=== PATIENT | female | born 1980 | race Caucasian/White ===

== ENCOUNTER 2016-10-24 11:43 | Emergency (ER) | payer OTHER ==
[~2016-10-24] VITALS: Ht 152.4 cm; Wt 65.0 kg
[2016-10-24 12:06] VITALS: Ht 152.4 cm; Wt 65.0 kg
[2016-10-24] MEDS ORDERED: SOD CHLORIDE 0.9% 1,000 ML IV ONE (13:00)
[2016-10-24] MEDS ORDERED: ACETAMINOPHEN 500 MG TAB PO STA (13:12)
[2016-10-24 13:26] LABS: ABNORMAL IP MESSAGE 1; BASOPHILS % 0.2 % (0.0-2.0); EOSINOPHILS # 0.6 10^3/ul (0.0-0.5); HEMATOCRIT 39.1 % (37.0-47.0); HEMOGLOBIN 13.7 g/dl (12.0-16.0); LYMPHOCYTES # 0.3 10^3/ul (0.8-2.9); LYMPHOCYTES % 2.9 % (15.0-51.0); MEAN CORPUSCULAR HEMOGLOBIN 31.2 pg (29.0-33.0); MEAN CORPUSCULAR VOLUME 89.1 fl (82.0-101.0); MONOCYTE # 0.5 10^3/ul (0.3-0.9); MONOCYTES % 4.1 % (0.0-11.0); NEUTROPHIL # 9.6 10^3/ul (1.6-7.5); NEUTROPHILS % 86.9 % (39.0-77.0); PLATELET COUNT 296 10^3/UL (140-415); RED BLOOD COUNT 4.39 10^6/ul (4.20-5.40); RED CELL DISTRIBUTION WIDTH 12.1 % (11.5-14.5); WHITE BLOOD COUNT 11.1 10^3/ul (4.8-10.8)
--- NOTE | 2016-10-24 13:37 | RADRPT ---
PROCEDURE: CT brain without contrast CLINICAL INDICATION: Headache, migraine 3 days, nausea, vomiting TECHNIQUE: CT of the brain without contrast was performed on a multidetector CT scanner, with multi planar reformats. One or more of the following dose reduction techniques were used: Automated expos ure control, adjustment in mA and / or kV according to patient size, use of iterative reconstructive technique. CTDIvol = 45 mGy; DLP = 630 mGy-cm. COMPARISON: None available FINDINGS: No acute intracranial hemorrhage is identified. No extra-axial fluid collection is seen. There is no mass effect. No midline shift is identified. Ventricles and sulci are within normal limits for size and configuration. The density of the brain is within normal limits. [place]-white differentiation is preserved. Osseous structures are unremarkable. Mastoid air cells and imaged paranasal sinuses grossly clear. IMPRESSION: Unremarkable noncontrast CT of the brain. RPTAT: VV .Sukhdev Bruno MD, MD Date Time Electronically viewed and signed by .Sukhdev Bruno MD, on 10/24/2016 13:36 .O/
[2016-10-24 13:41] LABS: CALCIUM 8.6 mg/dl (8.4-10.2); CREATININE 0.69 mg/dl (0.44-1.00); POTASSIUM 4.2 mmol/L (3.5-5.1)
[2016-10-24] MEDS ORDERED: ONDANSETRON 4 MG INJ IV STA (14:14)
[2016-10-24] MEDS ORDERED: morphine 4 MG/ML VIAL IV STA (14:22)
[2016-10-24] MEDS ORDERED: METOCLOPRAMIDE 10 MG INJ IV ONE (15:30)
[2016-10-24] MEDS ORDERED: DEXAMETHASONE 10 MG/ML 1 ML INJ IV ONE (15:30)
[2016-10-24] MEDS ORDERED: CEFTRIAXONE 1 GM/50 ML (PMX) 50 ML IVPB ONE (15:30)
[2016-10-24 16:38] LABS: ADD UMIC YES; UR ASCORBIC ACID NEGATIVE (NEGATIVE); UR BILIRUBIN (Dip) NEGATIVE (NEGATIVE); UR BLOOD (Dip) NEGATIVE (NEGATIVE); UR CLARITY CLEAR (CLEAR); UR COLOR AMBER (YELLOW); UR GLUCOSE (Dip) NEGATIVE (NEGATIVE); UR KETONES (Dip) 1+ mg/dL (NEGATIVE); UR LEUKOCYTE ESTERASE (Dip) TRACE Leu/ul (NEGATIVE); UR MUCUS FEW /HPF (NONE SEEN); UR NITRITE (Dip) NEGATIVE (NEGATIVE); UR RBC 1 /HPF (0-5); UR SPECIFIC GRAVITY (Dip) 1.027 (1.003-1.030); UR SQUAMOUS EPITHELIAL CELL FEW /HPF (FEW); UR TOTAL PROTEIN (Dip) 1+ mg/dl (NEGATIVE); UR UROBILINOGEN (Dip) 2+ mg/dL (NEGATIVE)
--- NOTE | 2016-10-24 16:59 | ERD ---
ER Documentation Chief Complaint Date/Time DATE: 10/24/16 TIME: 16:56 Chief Complaint headache x 3 days, appears in distress HPI This 36-year-old female presents to the emergency room for evaluation of a headache for 3 days. According to the patient the patient did have a tampon stuck in her vagina last week which was removed at an urgent care. She states that today she started developing headache and localized headache to the front portion of her head. She denies any trauma to the head, denies any fevers associated with this or blurred vision and came to the emergency room for evaluation. The patient describes her pain as an achy pain with no radiation and like does aggravate her symptoms. ROS All systems reviewed and are negative except as per history of present illness. Allergies Allergies: Coded Allergies: No Known Allergy (Unverified , 10/24/16) PMhx/Soc Medical and Surgical Hx: pt denies Medical Hx, pt denies Surgical Hx Hx Alcohol Use: No Hx Substance Use: No Hx Tobacco Use: Yes (1 PACK DAY) Smoking Status: Never smoker Physical Exam Vitals Vital Signs Date Time Temp Pulse Resp B/P Pulse Ox O2 Delivery O2 Flow Rate FiO2 10/24/16 15:15 99.0 10/24/16 12:06 99.4 120 26 129/70 99 Physical Exam INITIAL VITAL SIGNS: Reviewed by me GENERAL: The patient is well developed and appropriate for usual state of health in no apparent distress HEENT: Pupils equal, round, and reactive to light. EOMI. There is no scleral icterus. NECK: C-spine is soft and supple, there is no meningismus. There is no cervical lymphadenopathy. Negative Kernig sign, negative Babinski sign LUNGS: Clear to auscultation bilaterally. There are no rales, wheezes or rhonchi. HEART: Regular rate and rhythm, no murmurs, clicks, rubs or gallops. ABDOMEN: Soft, non-tender, non-distended. There are bowel sounds in all four quadrants. No rebound or guarding. EXTREMITIES: There is no peripheral cyanosis or edema. No focal swelling or erythema. NEUROLOGICAL: The patient moves all four extremities with 5/5 strength. Cranial nerves II - XII are intact. Normal gait. Alert and oriented SKIN: There is no apparent rash or petechiae. HEME/LYMPHATIC: There is no evidence of excessive bruising or lymphedema. PSYCHIATRIC: The patient does not appear anxious or depressed. Result Diagram: 10/24/16 1315 10/24/16 1315 Results 24 hrs Laboratory Tests Test 10/24/16 13:15 10/24/16 15:50 10/24/16 16:05 White Blood Count 11.110^3/ul Red Blood Count 4.3910^6/ul Hemoglobin 13.7g/dl Hematocrit 39.1% Mean Corpuscular Volume 89.1fl Mean Corpuscular Hemoglobin 31.2pg Mean Corpuscular Hemoglobin Concent 35.0g/dl Red Cell Distribution Width 12.1% Platelet Count 78668^3/UL Mean Platelet Volume 9.0fl Neutrophils % 86.9% Lymphocytes % 2.9% Monocytes % 4.1% Eosinophils % 5.0% Basophils % 0.2% Nucleated Red Blood Cells % 0.0/100WBC Neutrophils # 9.610^3/ul Lymphocytes # 0.310^3/ul Monocytes # 0.510^3/ul Eosinophils # 0.610^3/ul Basophils # 0.010^3/ul Nucleated Red Blood Cells # 0.010^3/ul Sodium Level 134mmol/L Potassium Level 4.2mmol/L Chloride Level 100mmol/L Carbon Dioxide Level 22mmol/L Anion Gap 16 Blood Urea Nitrogen 12mg/dl Creatinine 0.69mg/dl Glucose Level 101mg/dl Lactic Acid Level 0.8mmol/L Calcium Level 8.6mg/dl Creatine Kinase 47IU/L Urine Color MARIAA Urine Clarity CLEAR Urine pH 5.0 Urine Specific [place] 1.027 Urine Ketones 1+mg/dL Urine Nitrite NEGATIVEmg/dL Urine Bilirubin NEGATIVEmg/dL Urine Urobilinogen 2+mg/dL Urine Leukocyte Esterase TRACELeu/ul Urine Microscopic RBC 1/HPF Urine Microscopic WBC 3/HPF Urine Squamous Epithelial Cells FEW/HPF Urine Mucus FEW/HPF Urine Hemoglobin NEGATIVEmg/dL Urine Glucose NEGATIVEmg/dL Urine Total Protein 1+mg/dl Current Medications Medications (Trade) Dose Ordered Sig/Talon Route PRN Reason Start Time Stop Time Status Last Admin Dose Admin Sodium Chloride (NS) 1,000 ml @ 1,000 mls/hr Q1H ONCE IV 10/24/16 13:00 10/24/16 13:59 DC 10/24/16 15:27 Acetaminophen (Tylenol Tab) 1,000 mg ONCE STAT PO 10/24/16 13:12 10/24/16 13:13 DC 10/24/16 13:54 Ondansetron HCl (Zofran Inj) 4 mg ONCE STAT IV 10/24/16 14:14 10/24/16 14:15 DC 10/24/16 15:26 Morphine Sulfate (morphine) 4 mg ONCE STAT IV 10/24/16 14:22 10/24/16 14:24 DC 10/24/16 15:26 Metoclopramide HCl 5 mg 5 mg ONCE ONCE IV 10/24/16 15:30 10/24/16 15:31 DC 10/24/16 15:48 Ceftriaxone Sodium (Rocephin) 50 ml @ 100 mls/hr ONCE ONCE IVPB 10/24/16 15:30 10/24/16 15:59 DC 10/24/16 15:50 Dexamethasone (Decadron) 10 mg ONCE ONCE IV 10/24/16 15:30 10/24/16 15:31 DC 10/24/16 15:29 Procedures/MDM CT brain without: No acute processes This 36-year-old female presents to the ER for evaluation of a headache. The patient had negative Kernig sign, negative Babinski sign. When I evaluated her she did appear to be suffering from pain. Lab work was obtained which was a white blood cell count of 11. The patient has no meningeal signs at this time. CT the head is normal. The patient was given migraine cocktail with Reglan, Decadron, morphine, and IV fluids. She was given broad-spectrum antibiotics, Rocephin. When I reevaluated this patient she was stating that she was feeling much better. The patient likely suffering from a complex migraine. She will be discharged home with prescription for Fioricet. Patient presents with a headache consistent with previous migraine headaches. Considered in the differential diagnosis includes SAH, meningitis, and intracranial concerns. However, the patient's presentation is not consistent with these more significant concerns. After symptomatic management, the patient is much improved, neurologically normal, and appropriate for outpatient management. Peripheral line placement by me: Nursing staff unable to obtain IV access. Under ultrasound guidance Location: Right AC Technique: 20 gauge. [id number] with nursing assistance under ultrasound guidance Results: Venous flow and easy flush Secured with transparent dressing. No complications. Departure Diagnosis: Primary Impression: Cephalgia Additional Impression: Headache Condition: Stable TORO DE JESUS DO Oct 24, 2016 16:59
[2016-10-24] MEDS ORDERED: FIORICET PO (17:05)
[2016-10-24 17:17] VITALS: BP 101/65; PULSE 98; RESP 18; TEMP 98
== END 2016-10-24 17:19 | disposition home or self-care (01) ==
LOC: FTE 11:43
DX: R51 Headache (principal); E86.0 Dehydration
CPT/HCPCS: 36415; 70450; 80048; 81001; 82550; 83605; 85025; 87040; 96374; 96375; J0696; J1100; J2270; J2405; J2765; J7030; Z7502; Z7610

== ENCOUNTER 2016-10-28 08:28 | Emergency (ER) | payer OTHER ==
[~2016-10-28] VITALS: Wt 68.0 kg
[~2016-10-28 08:28] MED LIST: FIORICET PO
[2016-10-28] MEDS ORDERED: SOD CHLORIDE 0.9% 1,000 ML IV STA (08:59)
[2016-10-28] MEDS ORDERED: LORAZEPAM 2 MG INJ IV ONE (09:00)
[2016-10-28 09:26] LABS: BASOPHILS % 0.3 % (0.0-2.0); EOSINOPHILS # 0.8 10^3/ul (0.0-0.5); EOSINOPHILS % 8.6 % (0.0-7.0); HEMATOCRIT 37.8 % (37.0-47.0); LYMPHOCYTES # 3.1 10^3/ul (0.8-2.9); LYMPHOCYTES % 33.2 % (15.0-51.0); MEAN CORPUSCULAR HGB CONC 34.4 g/dl (32.0-37.0); MEAN PLATELET VOLUME 8.7 fl (7.4-10.4); MONOCYTE # 0.9 10^3/ul (0.3-0.9); MONOCYTES % 9.2 % (0.0-11.0); NEUTROPHIL # 4.4 10^3/ul (1.6-7.5); NEUTROPHILS % 46.6 % (39.0-77.0); PLATELET COUNT 432 10^3/UL (140-415); RED CELL DISTRIBUTION WIDTH 12.6 % (11.5-14.5); WHITE BLOOD COUNT 9.4 10^3/ul (4.8-10.8)
[2016-10-28 09:34] LABS: POSITIVE DIFF @See below
[2016-10-28 09:49] LABS: ADD UMIC NO; UR ASCORBIC ACID NEGATIVE (NEGATIVE); UR BILIRUBIN (Dip) NEGATIVE (NEGATIVE); UR BLOOD (Dip) NEGATIVE (NEGATIVE); UR CLARITY SLIGHTLY CLOUDY (CLEAR); UR COLOR YELLOW (YELLOW); UR GLUCOSE (Dip) NEGATIVE (NEGATIVE); UR KETONES (Dip) NEGATIVE (NEGATIVE); UR LEUKOCYTE ESTERASE (Dip) NEGATIVE Leu/ul (NEGATIVE); UR MUCUS FEW /HPF (NONE SEEN); UR NITRITE (Dip) NEGATIVE (NEGATIVE); UR RBC 1 /HPF (0-5); UR SPECIFIC GRAVITY (Dip) 1.015 (1.003-1.030); UR SQUAMOUS EPITHELIAL CELL FEW /HPF (FEW); UR TOTAL PROTEIN (Dip) NEGATIVE (NEGATIVE); UR UROBILINOGEN (Dip) NEGATIVE (NEGATIVE)
[2016-10-28 09:52] LABS: ALBUMIN 3.8 g/dl (3.3-4.9); ALBUMIN/GLOBULIN RATIO 1.22; CALCIUM 8.9 mg/dl (8.4-10.2); CREATININE 0.79 mg/dl (0.44-1.00); POTASSIUM 4.5 mmol/L (3.5-5.1); TOTAL PROTEIN 6.9 g/dl (6.1-8.1)
[2016-10-28] MEDS ORDERED: LORA1TAB PO (10:34)
[2016-10-28 10:59] VITALS: BP 136/88; PULSE 99; RESP 16
--- NOTE | 2016-10-28 11:19 | ERD ---
ER Documentation Chief Complaint Date/Time DATE: 10/28/16 TIME: 11:16 Chief Complaint HEADACHE, SEEN HERE SEVERAL DAYS AGO, ARM NUMBNESS HPI 36-year-old female patient with no significant past medical history presents to the ED complaining of headache that started 1 week ago. Patient reports that she had a tampon on for 4 days and got it removed 1 week ago at the urgent care. Reports that she was seen here due to the headache. Reports that she has a full workup which was negative for any acute findings. Reports that she also has numbness and tingling in her bilateral hands. Denies any fever, neck stiffness, nausea, vomiting, abdominal pain, diarrhea, dysuria, urgency, frequency. ROS All systems reviewed and are negative except as per history of present illness. Medications Home Meds Active Scripts Lorazepam* (Lorazepam*) 1 Mg Tablet, 1 MG PO QHS, #2 TAB Prov:JOHNATHAN MAJANO PA-C 10/28/16 Acetamin/Butalbital/Caffeine* (Fioricet*) [id number] Tab, 1 TAB PO Q6H Y for PAIN, #15 TAB Prov:TORO DE JESUS DO 10/24/16 Allergies Allergies: Coded Allergies: No Known Allergy (Unverified , 10/24/16) PMhx/Soc Medical and Surgical Hx: pt denies Medical Hx History of Surgery: Yes (cyst removal on bladder) Anesthesia Reaction: No Hx Neurological Disorder: No Hx Respiratory Disorders: No Hx Cardiac Disorders: No Hx Psychiatric Problems: No Hx Miscellaneous Medical Probl: No Hx Alcohol Use: No Hx Substance Use: No Hx Tobacco Use: Yes (1 PACK DAY) Smoking Status: Current every day smoker Physical Exam Vitals Vital Signs Date Time Temp Pulse Resp B/P Pulse Ox O2 Delivery O2 Flow Rate FiO2 10/28/16 10:59 99 16 136/88 99 10/28/16 08:30 97.9 100 18 161/96 98 Physical Exam Const: [id number], well-nourished. In no acute distress. Head: Atraumatic, normocephalic Eyes: Normal Conjunctiva without injection. No purulent discharge. PERRLA. EOMI ENT: Normal external ear. Ear canal without erythema. Tympanic membrane pearly shaver without effusion or bulging. Nasal canal clear with normal turbinates. Moist oropharynx without tonsillar exudates. Non-erythematous pharynx. Uvula midline. No drooling. No trismus. Neck: No cervical midline tenderness. Full range of motion. No meningismus. No cervical lymphadenopathy. No JVD. Resp: Clear to auscultation bilaterally. No wheezing, rhonchi, rales, or crackles. No accessory muscle use. No retractions. Cardio: Regular rate and rhythm. No murmurs, rubs or gallops. Abd: Soft, non tender, non distended. Normal bowel sounds. No palpable masses. No rebound tenderness. No guarding. Negative McBurney's Point. Negative Ngo's Sign. Skin: Normal skin turgor. No petechiae or rashes Back: No midline tenderness. No CVA tenderness. Ext: No cyanosis, or edema. Distal pulses intact bilaterally. Neur: Awake and alert. Normal gait. Normal coordination. Cranial Nerves II- VII intact. Normal finger to nose. Muscle strength 5/5. Sensation intact. Psych: Normal Mood and Affect Results 24 hrs Laboratory Tests Test 10/28/16 09:10 White Blood Count 9.410^3/ul Red Blood Count 4.2010^6/ul Hemoglobin 13.0g/dl Hematocrit 37.8% Mean Corpuscular Volume 90.0fl Mean Corpuscular Hemoglobin 31.0pg Mean Corpuscular Hemoglobin Concent 34.4g/dl Red Cell Distribution Width 12.6% Platelet Count 02715^3/UL Mean Platelet Volume 8.7fl Neutrophils % 46.6% Lymphocytes % 33.2% Monocytes % 9.2% Eosinophils % 8.6% Basophils % 0.3% Nucleated Red Blood Cells % 0.0/100WBC Neutrophils # 4.410^3/ul Lymphocytes # 3.110^3/ul Monocytes # 0.910^3/ul Eosinophils # 0.810^3/ul Basophils # 0.010^3/ul Nucleated Red Blood Cells # 0.010^3/ul Urine Color YELLOW Urine Clarity SLIGHTLY CLOUDY Urine pH 9.0 Urine Specific [place] 1.015 Urine Ketones NEGATIVEmg/dL Urine Nitrite NEGATIVEmg/dL Urine Bilirubin NEGATIVEmg/dL Urine Urobilinogen NEGATIVEmg/dL Urine Leukocyte Esterase NEGATIVELeu/ul Urine Microscopic RBC 1/HPF Urine Microscopic WBC 3/HPF Urine Squamous Epithelial Cells FEW/HPF Urine Mucus FEW/HPF Urine Hemoglobin NEGATIVEmg/dL Urine Glucose NEGATIVEmg/dL Urine Total Protein NEGATIVEmg/dl Sodium Level 143mmol/L Potassium Level 4.5mmol/L Chloride Level 100mmol/L Carbon Dioxide Level 30mmol/L Anion Gap 18 Blood Urea Nitrogen 16mg/dl Creatinine 0.79mg/dl Glucose Level 92mg/dl Calcium Level 8.9mg/dl Total Bilirubin 0.0mg/dl Direct Bilirubin 0.00mg/dl Indirect Bilirubin 0.0mg/dl Aspartate Amino Transf (AST/SGOT) 173IU/L Alanine Aminotransferase (ALT/SGPT) 244IU/L Alkaline Phosphatase 106IU/L Total Protein 6.9g/dl Albumin 3.8g/dl Globulin 3.10g/dl Albumin/Globulin Ratio 1.22 Current Medications Medications (Trade) Dose Ordered Sig/Talon Route PRN Reason Start Time Stop Time Status Last Admin Dose Admin Sodium Chloride (NS) 1,000 ml @ 1,000 mls/hr Q1H STAT IV 10/28/16 08:59 10/28/16 09:58 DC 10/28/16 09:13 Lorazepam (Ativan) 1 mg ONCE ONCE IV 10/28/16 09:00 10/28/16 09:04 DC 10/28/16 09:14 Procedures/MDM 36-year-old female patient with no significant past medical history presents the ED complaining of a headache and numbness and tingling in her bilateral hands. Patient is afebrile and nontoxic-appearing. Patient has normal vital signs. EKG, CBC, CMP, UA, 1 L normal saline, Ativan was ordered to further treat and evaluate patient. CBC: No leukocytosis. No e/o of systemic infection. No e/o anemia. CMP: No e/o severe acidosis, alkalosis, renal failure, diabetic ketoacidosis, transaminitis noted Lipase within normal limits. Urine: No leukocyte esterase, no nitrites, no hematuria. EKG reviewed and interpreted by Dr. Rothman Rate/Rhythm: [97 bpm, Normal Sinus Rhythm] No ectopy, no ST elevations, normal axis. QRS, ST, T-waves: [No changes consistent w/ acute ischemia] Impression: [No evidence of ischemia or arrhythmia] Low suspicion for acute myocardial infarction, toxic shock syndrome, pneumothorax, pneumonia, cardiac tamponade, pulmonary embolism, AAA, aortic dissection, Boerhaave's syndrome, cardiac dysrhythmias,meningitis, intracranial bleed, seizure, stroke, TIA or other emergent conditions. This case was discussed with my supervising physician Dr. Rothman who agreed with the management and discharge plan. Discharge medications: Ativan Follow up with primary care physician in 1-2 days. Instructed patient to return to the ED sooner for any worsening symptoms. Patient's questions were answered. Patient understood and agreed with discharge plan. Patient discharged stable. Departure Diagnosis: Primary Impression: Headache Headache type: unspecified Headache chronicity pattern: unspecified pattern Intractability: not intractable Qualified Code: R51 - Nonintractable headache, unspecified chronicity pattern, unspecified headache type Additional Impression: Paresthesias Condition: Stable Patient Instructions: Self-Care for Headaches, Anxiety Reaction Referrals: COMMUNITY CLINICS YOU HAVE RECEIVED A MEDICAL SCREENING EXAM AND THE RESULTS INDICATE THAT YOU DO NOT HAVE A CONDITION THAT REQUIRES URGENT TREATMENT IN THE EMERGENCY DEPARTMENT. FURTHER EVALUATION AND TREATMENT OF YOUR CONDITION CAN WAIT UNTIL YOU ARE SEEN IN YOUR DOCTORS OFFICE WITHIN THE NEXT 1-2 DAYS. IT IS YOUR RESPONSIBILITY TO MAKE AN APPOINTMENT FOR FOLOW-UP CARE. IF YOU HAVE A PRIMARY DOCTOR --you should call your primary doctor and schedule an appointment IF YOU DO NOT HAVE A PRIMARY DOCTOR YOU CAN CALL OUR PHYSICIAN REFERRAL HOTLINE AT IF YOU CAN NOT AFFORD TO SEE A PHYSICIAN YOU CAN CHOSE FROM THE FOLLOWING [facility] CLINICS [facility] [address] [facility]. [facility] [address] [facility] [address] [facility] [facility] [address] [facility]. [facility] [address] [facility]. [facility]. [address] [facility]. [facility] YOU HAVE RECEIVED A MEDICAL SCREENING EXAM AND THE RESULTS INDICATE THAT YOU DO NOT HAVE A CONDITION THAT REQUIRES URGENT TREATMENT IN THE EMERGENCY DEPARTMENT. FURTHER EVALUATION AND TREATMENT OF YOUR CONDITION CAN WAIT UNTIL YOU ARE SEEN IN YOUR DOCTORS OFFICE WITHIN THE NEXT 1-2 DAYS. IT IS YOUR RESPONSIBILITY TO MAKE AN APPOINTMENT FOR FOLOW-UP CARE. IF YOU HAVE A PRIMARY DOCTOR --you should call your primary doctor and schedule and appointment IF YOU DO NOT HAVE A PRIMARY DOCTOR YOU CAN CALL OUR PHYSICIAN REFERRAL HOTLINE AT . IF YOU CAN NOT AFFORD TO SEE A PHYSICIAN YOU CAN CHOSE FROM THE FOLLOWING [facility] INSTITUTIONS: [facility] [address] [place] [address] [facility] [address] [place], [place] [id number] [place] [address] [address] [place] [address] [facility]CIALT[facility] Additional Instructions: Call your primary care doctor TOMORROW for an appointment during the next 2-3 days.See the doctor sooner or return here if your condition worsens before your appointment time. JOHNATHAN MAJANO PA-C Oct 28, 2016 11:19 JOHNATHAN MAJANO PA-C Oct 28, 2016 11:19
== END 2016-10-28 11:03 | disposition home or self-care (01) ==
LOC: FTE 08:28
DX: R51 Headache (principal); R20.2 Paresthesia of skin; F17.210 Nicotine dependence, cigarettes, uncomplicated
CPT/HCPCS: 36415; 80053; 81001; 85025; 93005; 96374; J2060; J7030; Z7502; 81003